=== PATIENT | male | born 1995 | race Caucasian/White ===

== ENCOUNTER 2017-09-06 01:38 | Emergency (ER) | payer OTHER ==
[2017-09-06] MEDS ORDERED: ONDANSETRON 4 MG/2 ML VIAL ONE (01:42)
[2017-09-06] MEDS ORDERED: ONDANSETRON 4 MG/2 ML VIAL IVP ONE ×2 (01:46→03:10)
--- NOTE | 2017-09-06 01:52 | EDPHY ---
H & P Stated Complaint: ETOH Time Seen by Provider: 09/06/17 01:49 HPI/ROS: Chief Complaint: Alcohol intoxication, vomiting HPI: 21-year-old male who was [place] intoxicated. He drinks multiple beers and smoked marijuana. He has vomited multiple times. Unable to keep anything down. Is unable to ambulate on their own. Patient brought in by EMS for further evaluation. Denies falls or any other injuries. ROS: 10 point Review of Systems is negative except as noted in the HPI. PMH: Denies Medications: Denies Allergies: Augmentin Social History: Positive for alcohol and marijuana Family History: non-contributory Physical Exam: Gen: Awake, slurred speech, smells of alcohol and emesis HEENT: Atraumatic Nose: no epistaxis or deformity Eyes: PERRLA, EOMI Mouth: Moist mucosa Neck: Supple, no step-offs or deformity Chest: Atraumatic, lungs clear to auscultation Heart: S1, S2 normal, no murmur Abd: Soft, non-tender, no guarding Back: Atraumatic Ext: no edema, atraumatic Skin: no rash Neuro: Sensation grossly intact, Strength 5/5 in bilateral upper and lower extremities - Personal History Current Tetanus/Diphtheria Vaccine: Yes Current Tetanus Diphtheria and Acellular Pertussis (TDAP): Yes - Medical/Surgical History Hx Asthma: No Hx Chronic Respiratory Disease: No Hx Diabetes: No Hx Cardiac Disease: No Hx Renal Disease: No Hx Cirrhosis: No Hx Alcoholism: No Hx HIV/AIDS: No Hx Splenectomy or Spleen Trauma: No Other PMH: denies - Social History Smoking Status: Never smoked Constitutional: Initial Vital Signs Temperature (C) 36.7 C 09/06/17 01:48 Heart Rate 77 09/06/17 01:48 Respiratory Rate 16 09/06/17 01:48 Blood Pressure 128/68 H 09/06/17 01:48 O2 Sat (%) 91 L 09/06/17 01:48 O2 Delivery Mode Room Air Allergies/Adverse Reactions: amoxicillin [From Augmentin] Allergy (Verified 09/06/17 01:46) clavulanic acid [From Augmentin] Allergy (Verified 09/06/17 01:46) Home Medications: Medication Instructions Recorded NK [No Known Home Meds] 09/06/17 Medical Decision Making ED Course/Re-evaluation: Patient received IV fluids and Zofran. Parents are at the bedside. He is feeling improved. He is ambulating unassisted to the bathroom. Parents are happy to take him home. - Data Points Medications Given: Discontinued Medications Ondansetron HCl (Zofran) 4 mg IVP EDNOW ONE Stop: 09/06/17 01:47 Last Admin: 09/06/17 01:47 Dose: 4 mg Ondansetron HCl (Zofran) 4 mg IVP EDNOW ONE Stop: 09/06/17 03:11 Last Admin: 09/06/17 03:12 Dose: 4 mg Departure - Departure Disposition: Home, Routine, Self-Care Clinical Impression: Alcoholic intoxication Condition: Good Instructions: Alcohol Intoxication (ED) Referrals: Patient,NotPresent [Unknown] - As per Instructions
[2017-09-06 03:54] VITALS: BP 128/69
[2017-09-06] MEDS ORDERED: ONDANSETRON 4MG PREPACK#2 BTL TAKEHOME ONE ×2 (04:08→04:09)
== END 2017-09-06 04:01 | disposition home or self-care (01) ==
DX: F10.129 Alcohol abuse with intoxication, unspecified (principal)
CPT/HCPCS: 96374; J2405

== ENCOUNTER → 2018-03-24 | Outpatient (CLI) | payer OTHER | LOC: MERGE 17:30 → BMCIMAGING 17:30 | PROVIDERS: ATTEND Family Medicine | DX: S69.91XA Unspecified injury of right wrist, hand and finger(s), initial encounter (principal) ==